=== PATIENT | female | born 1980 | race Caucasian/White ===

== ENCOUNTER 2021-11-06 16:01 | Emergency (ER) | payer SELFPAY ==
[~2021-11-06] VITALS: Ht 162.6 cm; Wt 106.8 kg
[2021-11-06 16:30] VITALS: BP 142/82; TEMP 98
[2021-11-06] MEDS ORDERED: AMOXICILLIN 8751 TAB PO (17:07)
[2021-11-06 17:18] VITALS: PULSE 75
== END 2021-11-06 17:18 | disposition home or self-care (01) ==
LOC: COL.ER 16:01
DX: H66.92 Otitis media, unspecified, left ear (principal); F17.200 Nicotine dependence, unspecified, uncomplicated; Z88.1 Allergy status to other antibiotic agents

== ENCOUNTER 2023-07-12 18:04 | Emergency (ER) | payer BC ==
[~2023-07-12] VITALS: Ht 162.6 cm; Wt 104.5 kg
[~2023-07-12 18:04] MED LIST: AMOXICILLIN 8751 TAB PO; CLEOCIN HCL300 MG PO; NORCO 325 MG-51 TAB PO
[2023-07-12 18:21] VITALS: TEMP 98.6
[2023-07-12 20:06] LABS: BASO # 0.1 K/mm3 (0.0-0.2); BASO % 0.6 % (0.0-2.0); EOS # 0.3 K/mm3 (0.0-0.7); EOS % 2.3 % (0.0-4.0); GRAN # 6.2 K/mm3 (1.4-6.5); GRAN % 53.3 % (42.2-75.2); HEMOGLOBIN 14.6 g/dl (12.5-16.0); LYMPH # 4.4 K/mm3 (1.2-3.4); MEAN CELL VOLUME 90 fl (80.0-100.0); MEAN CORPUSCULAR HEMOGLOBIN 31 pg (27-31); MEAN CORPUSCULAR HGB CONC 35 g/dl (33.0-37.0); MEAN PLATELET VOLUME 10.1 fl (7.4-10.4); MONO # 0.6 K/mm3 (0.1-0.6); MONO % 5.3 % (1.7-9.3); PLATELET COUNT 273 K/mm3 (130-400); RED BLOOD COUNT 4.67 M/mm3 (4.10-5.30); REDCELL DISTRIBUTION WIDTH-CV 12.2 % (11.5-14.5)
[2023-07-12 20:27] LABS: ALBUMIN 3.7 gm/dL (3.5-5.0); BILIRUBIN,TOTAL 0.3 mg/dL (0.2-1.2); CALCIUM 9.3 mg/dL (8.4-10.2); CREATININE, serum 0.77 mg/dL (0.57-1.11); POTASSIUM 4.1 mmol/L (3.5-4.5); TOTAL PROTEIN 7.3 gm/dL (6.2-8.1)
[2023-07-12] MEDS ORDERED: GLUCOPHAGE500 MG/TAB PO (21:11)
[2023-07-12 21:33] VITALS: BP 112/66; PULSE 77
== END 2023-07-12 21:33 | disposition home or self-care (01) ==
LOC: COL.ER 18:04
PROVIDERS: Personal Emergency Response Attendant
DX: E11.65 Type 2 diabetes mellitus with hyperglycemia (principal); Z79.84 Long term (current) use of oral hypoglycemic drugs; Z28.310 Unvaccinated for COVID-19
CPT/HCPCS: J1815; J7030

== ENCOUNTER → 2024-01-03 | Outpatient (CLI) | payer BC ==
[~2024-01-03] MED LIST changes: +GLUCOPHAGE500 MG/TAB PO
== END ==
LOC: DIA.ED 08:27
DX: E11.9 Type 2 diabetes mellitus without complications (principal); Z79.4 Long term (current) use of insulin
CPT/HCPCS: G0108

== ENCOUNTER 2024-05-22 00:25 | Emergency (ER) | payer SELFPAY ==
[~2024-05-22] VITALS: Ht 157.5 cm; Wt 97.7 kg
[2024-05-22 01:06] VITALS: BP 151/100; TEMP 98.4
[2024-05-22] MEDS ORDERED: FLEXERIL 1010 MG/TAB PO (02:10)
[2024-05-22] MEDS ORDERED: Home HYDROcodone/Acetaminophen 5/325 MG #4 TABS/PACK PO ONE (02:15)
[2024-05-22 02:28] VITALS: PULSE 88
== END 2024-05-22 02:28 | disposition home or self-care (01) ==
LOC: COL.ER 00:25
DX: M25.512 Pain in left shoulder (principal); F17.200 Nicotine dependence, unspecified, uncomplicated
CPT/HCPCS: J2360